=== PATIENT | female | born 1960 ===

== ENCOUNTER 2022-12-21 09:40 | Outpatient (CLI) | payer OTHER | END 2022-12-21 09:41 | disposition home or self-care (01) | LOC: SONOGRAMA 09:40 | PROVIDERS: ATTEND Pathology Anatomic Pathology & Clinical Pathology | DX: E06.3 Autoimmune thyroiditis (principal); D34 Benign neoplasm of thyroid gland; E04.9 Nontoxic goiter, unspecified ==